=== PATIENT | male | born 1995 | race Caucasian/White ===

== ENCOUNTER 2016-10-06 10:34 | Emergency (ER) | payer OTHER ==
[~2016-10-06] VITALS: Ht 170.2 cm; Wt 79.5 kg
[~2016-10-06 10:34] MED LIST: BACITUD TOP; TRAM50TA2 PO
[2016-10-06 10:57] VITALS: Ht 170.2 cm; Wt 79.5 kg
[2016-10-06] MEDS ORDERED: traMADol 50 MG TAB PO ONE (13:00)
--- NOTE | 2016-10-06 13:36 | RADRPT ---
PROCEDURE: CT Brain without contrast. CLINICAL INDICATION: Headache, trauma, dizziness TECHNIQUE: Routine CT scan of the brain was performed on a high resolution multi detector scanner without intravenous contrast. One or more of the following dose reduction techniques were used: Auto mated exposure control; Adjustment of the mA and/or kV according to patient size; Use of iterative r econstruction technique. CTDI = 44 mGy. DLP = 720 mGy-cm. COMPARISON: No prior relevant examinations are available for comparison. FINDINGS: Hemorrhage: No evidence of intracranial hemorrhage. Acute ischemic changes: No evidence of acute ischemic changes. Mass effect/Midline shift: None. Parenchymal volume: Within normal limits for age. Ventricular system: Concordant with parenchymal volume. Chronic changes: Parenchymal attenuation is within normal limits. Extracranial soft tissues: Mild soft tissue swelling of the right parietal scalp near the vertex. Calvarium: No fractures. Paranasal sinuses: Visualized paranasal sinuses are clear. Mastoid air cells: Visualized mastoid air cells are clear. IMPRESSION: No acute intracranial abnormalities. Normal appearance the brain parenchyma. Mild soft tissue swelling of the right parietal scalp near the vertex without fracture. RPTAT: AADD .Chevy Sharp MD, Date Time Electronically viewed and signed by .Chevy Sharp MD, on 10/06/2016 13:36 .B/
--- NOTE | 2016-10-06 14:08 | RADRPT ---
PROCEDURE: X-ray rib series CLINICAL INDICATION: Trauma, pain TECHNIQUE: Multiple images of the left ribs are obtained. COMPARISON: X-ray chest 05/25/2016 FINDINGS: There is an old fracture deformity of the left lateral 2nd rib, and a nonunited fracture deformity o f the lateral left 3rd rib. There is a fracture deformity of the left lateral 6th rib as well. No acute fracture is identified. There is plate and screw fixation of the left humerus. There is no p neumothorax. Soft tissue structures appear within normal limits. IMPRESSION: 1. Old left lateral rib fracture deformities, including a nonunited deformity of the left third rib . No acute fracture or dislocation identified. RPTAT: DD .Michel Cano MD, MD Date Time Electronically viewed and signed by .Michel Cano MD, on 10/06/2016 14:08 .T/
--- NOTE | 2016-10-06 14:10 | RADRPT ---
PROCEDURE: XR Lumbar Spine. CLINICAL INDICATION: Trauma, pain TECHNIQUE: AP, lateral and cone-down lateral views of the lumbar spine were obtained. COMPARISON: No prior studies are available for comparison. FINDINGS: There is a normal lumbar lordosis. Vertebral body heights appear normal. Intervertebral disk spaces are maintained There is no fracture or dislocation. The facet joints are unremarkable. There is no pars defect identified. The sacroiliac joints appear normal. The soft tissues appear unremarkable. IMPRESSION: Unremarkable lumbar spine. No visualized fracture or dislocation. RPTAT: DD .Michel Cano MD, MD Date Time Electronically viewed and signed by .Michel Cano MD, MD on 10/06/2016 14:10 .T/
[2016-10-06] MEDS ORDERED: HYDR-902 PO (14:18)
[2016-10-06] MEDS ORDERED: IBUP800T25 PO (14:18)
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
== END 2016-10-06 15:01 | disposition home or self-care (01) ==
LOC: FTE 10:34
DX: S09.90XA Unspecified injury of head, initial encounter (principal); S20.219A Contusion of unspecified front wall of thorax, initial encounter; M54.5 Low back pain; R51 Headache; V18.4XXA Pedal cycle driver injured in noncollision transport accident in traffic accident, initial encounter
CPT/HCPCS: 70450; 71100; 72100; Z7502; Z7610